=== PATIENT | female | born 1945 | race Caucasian/White ===

== ENCOUNTER → 2016-10-05 | Outpatient (CLI) | payer MEDICARE, OTHER ==
[~2016-10-05] MED LIST: BUSPAR5 MG PO; CLONAZEPAM PO; EFFEXOR; NORCO 325 MG-51 TAB PO
== END ==
LOC: BHSO 10:20
DX: F33.42 Major depressive disorder, recurrent, in full remission (principal)

== ENCOUNTER → 2017-03-31 | Outpatient (CLI) | payer MEDICARE, OTHER | LOC: BHSO 14:37 | DX: F33.42 Major depressive disorder, recurrent, in full remission (principal) ==

== ENCOUNTER → 2017-09-26 | Outpatient (CLI) | payer MEDICARE, OTHER | LOC: BHSO 12:13 | DX: F33.42 Major depressive disorder, recurrent, in full remission (principal) | CPT/HCPCS: G0463 ==

== ENCOUNTER → 2018-02-16 | Outpatient (CLI) | payer MEDICARE, OTHER | LOC: BHSO 10:27 | DX: F33.41 Major depressive disorder, recurrent, in partial remission (principal) | CPT/HCPCS: G0463 ==

== ENCOUNTER → 2018-03-22 | Outpatient (CLI) | payer MEDICARE, OTHER | LOC: BHSO 13:04 | DX: F33.42 Major depressive disorder, recurrent, in full remission (principal) | CPT/HCPCS: G0463 ==

== ENCOUNTER 2018-08-02 07:18 | Day surgery (SDC) | payer MEDICARE, OTHER ==
[~2018-08-02] VITALS: Ht 152.4 cm; Wt 91.4 kg
[2018-08-02] VITALS (7 sets, daily range): BP systolic 101–131; BP diastolic 60–77; PULSE 69–79; TEMP 98.2–98.8
[2018-08-02] MEDS ORDERED: VIIBRYD20 MG PO (07:46)
[2018-08-02] MEDS ORDERED: COLACE 100100 MG/CAP PO (07:46)
[2018-08-02] MEDS ORDERED: PERCOCET 325 MG1 TA2 PO (07:46)
[2018-08-02] MEDS ORDERED: DESYREL 100MG100 MG PO (07:47)
[2018-08-02] MEDS ORDERED: SEROQUEL50 MG PO (07:47)
[2018-08-02] MEDS ORDERED: LUTEIN6 MG PO (07:48)
[2018-08-02] MEDS ORDERED: CALCIUM CITRAT950 MG PO (07:48)
[2018-08-02] MEDS ORDERED: ONE DAILY1 TA1 PO (07:49)
[2018-08-02] MEDS ORDERED: KRILL OIL 3001 EACH PO (07:49)
[2018-08-02] MEDS ORDERED: ASPIRIN 81M81 MG/TA2 PO (07:49)
[2018-08-02] MEDS ORDERED: MELATONIN1 MG PO (07:50)
[2018-08-02] MEDS ORDERED: PROFERRIN ES12 MG PO (07:50)
== END 2018-08-02 13:00 | disposition home or self-care (01) ==
LOC: SDCO 07:18
DX: Z46.2 Encounter for fitting and adjustment of other devices related to nervous system and special senses (principal); R35.1 Nocturia; N39.3 Stress incontinence (female) (male); J45.909 Unspecified asthma, uncomplicated; F60.3 Borderline personality disorder; F32.9 Major depressive disorder, single episode, unspecified; K21.9 Gastro-esophageal reflux disease without esophagitis; K58.9 Irritable bowel syndrome, unspecified; Z79.899 Other long term (current) drug therapy; Z79.82 Long term (current) use of aspirin; M48.00 Spinal stenosis, site unspecified
CPT/HCPCS: J0690; J1100; J1885; J2704; J3010; J7120

== ENCOUNTER → 2018-09-27 | Outpatient (CLI) | payer MEDICARE, OTHER ==
[~2018-09-27] MED LIST changes: +ASPIRIN 81M81 MG/TA2 PO; +CALCIUM CITRAT950 MG PO; +COLACE 100100 MG/CAP PO; +DESYREL 100MG100 MG PO; +KRILL OIL 3001 EACH PO; +LUTEIN6 MG PO; +MELATONIN1 MG PO; +ONE DAILY1 TA1 PO; +PERCOCET 325 MG1 TA2 PO; +PROFERRIN ES12 MG PO; +SEROQUEL50 MG PO; +VIIBRYD20 MG PO
== END ==
LOC: BHSO 12:43
DX: F33.41 Major depressive disorder, recurrent, in partial remission (principal)
CPT/HCPCS: G0463

== ENCOUNTER → 2018-11-22 | Outpatient (CLI) | payer MEDICARE, OTHER | LOC: BHSO 14:10 | DX: F41.1 Generalized anxiety disorder (principal) | CPT/HCPCS: G0463 ==

== ENCOUNTER → 2019-06-06 | Outpatient (CLI) | payer MEDICARE, OTHER | LOC: BHSO 14:23 | DX: F33.42 Major depressive disorder, recurrent, in full remission (principal) | CPT/HCPCS: G0463 ==

== ENCOUNTER → 2020-06-20 | Outpatient (CLI) | payer MEDICARE, OTHER | LOC: BHSO 14:57 | DX: F33.42 Major depressive disorder, recurrent, in full remission (principal) | CPT/HCPCS: G0463 ==

== ENCOUNTER 2021-06-05 02:57 | Inpatient (IN) | payer MEDICARE, OTHER ==
[~2021-06-05] VITALS: Ht 152.4 cm; Wt 108.0 kg
--- NOTE | 2021-06-05 05:20 | NUR ---
PT ADMITTED TO THE UNIT, ASSESSMENT AND INTAKE COMPLETED. ORIENTED TO ROOM. LUNGS SOUNDS AUSCULTATED WITH EXPIRATORY WHEEZES, ON 4L OF OXYGEN VIA NC. BLE EDEMA 2+. DENIES ANY NEEDS. WILL CONTINUE TO MONITOR.
[2021-06-05 05:31] VITALS: BP 116/51; PULSE 92; TEMP 99.3
[2021-06-05] MEDS ORDERED: LASIX 80MG TABL80 MG PO (06:01)
[2021-06-05] MEDS ORDERED: FLOVENT 220MCG7.9 GM IH (06:01)
[2021-06-05] MEDS ORDERED: IPRATROPIUM BROM3 M1 IH (06:02)
[2021-06-05] MEDS ORDERED: AVAPRO TAB150 MG/TAB PO (06:02)
[2021-06-05] MEDS ORDERED: NORVASC 5MG5 MG/TAB PO (06:02)
[2021-06-05] MEDS ORDERED: THEO-24400 MG PO (06:03)
[2021-06-05] MEDS ORDERED: VIIBRYD20 MG PO (06:03)
[2021-06-05] MEDS ORDERED: ARICEPT10 MG PO (06:03)
[2021-06-05] MEDS ORDERED: NEURONTIN100 MG/CAP PO (06:04)
[2021-06-05 07:02] LABS: BASO % 0.3 % (0.0-2.0); EOS % 0.1 % (0-4.0); GRAN # 6.2 (1.4-6.5); GRAN % 82.1 % (42.2-75.2); HEMOGLOBIN 10.8 g/dl (12.5-16.0); LYMPH # 0.9 (1.2-3.4); LYMPH % 11.3 % (20.0-51.0); MEAN CELL VOLUME 92 fl (80.0-100.0); MEAN CORPUSCULAR HEMOGLOBIN 29 pg (27.0-31.0); MEAN CORPUSCULAR HGB CONC 31 g/dl (33.0-37.0); MEAN PLATELET VOLUME 10.8 fl (7.4-10.4); MONO # 0.4 (0.1-0.6); MONO % 5.5 % (1.7-9.3); PLATELET COUNT 191 K/mm3 (130-400); RED BLOOD COUNT 3.75 M/mm3 (4.10-5.30); REDCELL DISTRIBUTION WIDTH-CV 16.1 % (11.5-14.5)
[2021-06-05 07:04] LABS: HEMATOCRIT 34.4 % (37.0-47.0)
--- NOTE | 2021-06-05 07:11 | NUR ---
RECEIVED REPORT FROM ELLY AVILES. PT IN THE BATHROOM. DENIES PAIN. NO NEEDS AT THIS TIME. CALL PEDRO IN REACH
[2021-06-05 07:18] LABS: CALCIUM 8.8 mg/dL (8.4-10.2); CREATININE, serum 0.93 mg/dL (0.57-1.11); POTASSIUM 3.2 mmol/L (3.5-4.5); THEOPHYLLINE 6.8 ug/mL (8-20)
[2021-06-05 08:56] VITALS: BP 118/55; PULSE 90; TEMP 98.7
--- NOTE | 2021-06-05 11:16 | NUR ---
SW met with patient at bedside, to discuss her plan of care and d/c plan. Patient reports she lives alone in [place], in a [place] rise [employer] apartment building on the 5th floor. The building has 2 elevators and she has no difficulty accessing or ambulating in and around her home. Patient has a walker that she states she uses most of the time. She also has a shower chair and she is on 02 at home, but unsure of the amount of liters. Her PCP recently retired and she cannot recall her new doctor's name but she plans to change doctors again. She uses [facility] in [place] to obtain her medications and she has no difficulty in getting them. Her son, Jeffrey ([phone]) is DPOA and this is in writing per patient, but not in the hospital records. TAYE will continue to follow for patient needs. *D/C home likely
[2021-06-05 12:08] VITALS: BP 119/46; PULSE 92; TEMP 98.3
--- NOTE | 2021-06-05 12:39 | NUR ---
First visit from the personnel officer. No needs right now.
[2021-06-05 17:00] VITALS: BP 135/65; PULSE 91; TEMP 99
--- NOTE | 2021-06-05 18:20 | NUR ---
PT HAD UNEVENTFUL DAY. NO NEEDS AT THIS TIME. CALL PEDRO IN REACH. PT DENIES PAIN
[2021-06-05 20:24] VITALS: BP 119/58; PULSE 92; TEMP 99.1
--- NOTE | 2021-06-05 23:33 | NUR ---
Patient is alert and oriented x 4, VSS, TELE in place, 4L of 02 with NC, report some headache, asked hospitalist to add tylenol requested by patient. No nausea or vomiting. Expiratory weezles in all lobes. Patient reports feeling dizzy while standing up and taking some steps. Assessment competed. No further needs at this time. Call light within reach.
[2021-06-05 23:36] VITALS: BP 123/45; PULSE 89; TEMP 98.9
[2021-06-06 03:58] VITALS: BP 137/64; PULSE 91; TEMP 98.6
--- NOTE | 2021-06-06 05:25 | NUR ---
Patient has been sleeping intermintently. When she is awake she starts coughing. Reports shortness of breath with exertion, lungs sounds continue wheezing on exhalation. No further needs at this time.
[2021-06-06 06:56] LABS: HEMOGLOBIN 11.1 g/dl (12.5-16.0); MEAN CORPUSCULAR HEMOGLOBIN 29 pg (27.0-31.0); MEAN CORPUSCULAR HGB CONC 33 g/dl (33.0-37.0); MEAN PLATELET VOLUME 10.6 fl (7.4-10.4); PLATELET COUNT 238 K/mm3 (130-400); REDCELL DISTRIBUTION WIDTH-CV 15.9 % (11.5-14.5)
[2021-06-06 06:59] LABS: MEAN CELL VOLUME 87 fl (80.0-100.0)
[2021-06-06 07:11] LABS: CALCIUM 9.1 mg/dL (8.4-10.2); CREATININE, serum 0.85 mg/dL (0.57-1.11); POTASSIUM 3.8 mmol/L (3.5-4.5)
[2021-06-06 08:16] VITALS: BP 140/62; PULSE 99; TEMP 98
--- NOTE | 2021-06-06 08:54 | NUR ---
Pt awake and alert upon entry, no C/O pain at this time. Shift assessment complete, left Pt in bed, lowest position, call light in reach.
[2021-06-06 11:25] VITALS: BP 125/51; PULSE 93; TEMP 98.5
[2021-06-06 16:33] VITALS: BP 132/56; PULSE 99; TEMP 99
--- NOTE | 2021-06-06 18:38 | NUR ---
Pt resting in the room, no complaints today. VS have remained stable.
[2021-06-06 19:57] VITALS: BP 151/61; PULSE 85; TEMP 98.6
--- NOTE | 2021-06-06 21:00 | NUR ---
Patient is resting in bed, alert and oriented x 4, VSS, denies pain, nausea or vomiting, TELE in place, battery replaced. Reports she continues getting SOB while going to the restroom or the chair. Continues having cough, but states is less severe than the day before. Sputum collected and sent it to lab. She is in 3L O2 Nc. No further needs at this time. Call light within reach.
[2021-06-06 23:21] VITALS: BP 152/68; PULSE 88; TEMP 99.6
[2021-06-07 03:53] VITALS: BP 153/73; PULSE 95; TEMP 97.7
--- NOTE | 2021-06-07 06:15 | NUR ---
Patient has been stable over night. Persistent cough but states it does not bother her. Wheezing is evident. She states she feels better since at least her headache is not present anymore. No further needs at this time. Shift report will be given.
[2021-06-07 06:37] LABS: HEMATOCRIT 37.9 % (37.0-47.0); HEMOGLOBIN 12.3 g/dl (12.5-16.0); MEAN CELL VOLUME 89 fl (80.0-100.0); MEAN CORPUSCULAR HEMOGLOBIN 29 pg (27.0-31.0); MEAN CORPUSCULAR HGB CONC 33 g/dl (33.0-37.0); MEAN PLATELET VOLUME 10.9 fl (7.4-10.4); PLATELET COUNT 317 K/mm3 (130-400); RED BLOOD COUNT 4.26 M/mm3 (4.10-5.30); REDCELL DISTRIBUTION WIDTH-CV 15.9 % (11.5-14.5)
[2021-06-07 06:41] LABS: CALCIUM 9.1 mg/dL (8.4-10.2); CREATININE, serum 0.88 mg/dL (0.57-1.11); POTASSIUM 3.5 mmol/L (3.5-4.5)
[2021-06-07 07:20] VITALS: BP 161/77; PULSE 96; TEMP 98.3
[2021-06-07 08:48] LABS: ANISOCYTOSIS 1+; HYPOCHROMIA 1+; LYMPHOCYTE 7 % (20.0-51.0); NEUTROPHILS 90 % (42.0-75.2); PLATELET ESTIMATE NORMAL (NORMAL)
--- NOTE | 2021-06-07 09:07 | NUR ---
Pt awake upon entry, sitting up in bed, RT in room. No C/O pain at this time. Shift assessment complete, leftr Pt call light in reach, bed in lowest position.
[2021-06-07] MEDS ORDERED: PREDNISONE20 MG PO (09:30)
[2021-06-07] MEDS ORDERED: LEVAQUIN 750MG750 M1 PO (09:32)
--- NOTE | 2021-06-07 10:04 | NUR ---
Daisy faxed a referral to [facility] for PT services.9:50 am. The pt has night o2 at home before being admitted to the hospital. Daisy faxed over DME order to [facility] in [place]. The pt already uses services from them for her night o2. [facility] is not open on Sundays. Daisy to follow up on Tuesday morning to make sure they recieved the new script. [facility] ph# [phone] and fax .
--- NOTE | 2021-06-07 10:16 | NUR ---
Daisy met with the pt and informed her that I made referral to [facility] and faxed over her script to [facility] for her updated oxygen. I informed her Daisy will contact them tomorrow to make sure they recived the script and follow up with you tommorrow.
[2021-06-07 11:49] VITALS: BP 141/77; PULSE 96; TEMP 98.5
--- NOTE | 2021-06-07 14:28 | NUR ---
Pt discharged to home, discussed discharge information with Pt, answered questions. Pt escorted to entrance by PCT, Pt left with friend via [employer] transportation.
--- NOTE | 2021-06-08 15:24 | NUR ---
SW contacted [facility], spoke with Naomi. They recd faxed referral from 06/07 and have accepted patient. TAYE followed up with [facility] in [place], where patient currently receives her 02 needs and they recd referral to increase her oxygen needs.
--- NOTE | 2021-06-09 09:33 | NUR ---
make ready worker confirmed, with [facility], that patient has an oxygen system set up at her home. Worker faxed [facility] a copy of discharge summary. No further needs at this time. Worker confirmed with [facility] that they have accepted patient for care.
== END 2021-06-07 14:29 | disposition home health service (06) | DRG 871 ==
LOC: MEDICAL 02:57
PROVIDERS: Family Medicine; Nurse Practitioner Family; Physician Assistant; ADMIT Family Medicine
DX: A41.9 Sepsis, unspecified organism (principal); J18.9 Pneumonia, unspecified organism; J96.21 Acute and chronic respiratory failure with hypoxia; J96.22 Acute and chronic respiratory failure with hypercapnia; J45.901 Unspecified asthma with (acute) exacerbation; N39.0 Urinary tract infection, site not specified; Z68.42 Body mass index [BMI] 45.0-49.9, adult; F32.9 Major depressive disorder, single episode, unspecified; F41.1 Generalized anxiety disorder; E66.01 Morbid (severe) obesity due to excess calories; F03.90 Unspecified dementia, unspecified severity, without behavioral disturbance, psychotic disturbance, mood disturbance, and anxiety; R74.01 Elevation of levels of liver transaminase levels; Z66 Do not resuscitate; R19.7 Diarrhea, unspecified; Z20.822 Contact with and (suspected) exposure to COVID-19; R73.01 Impaired fasting glucose; G47.30 Sleep apnea, unspecified; Z98.51 Tubal ligation status; Z86.718 Personal history of other venous thrombosis and embolism
CPT/HCPCS: 99223-AI; 99232-AI; 99239; J0696; J1650; J1815; J2930